=== PATIENT | female | born 1950 | race Caucasian/White ===

== ENCOUNTER 2021-03-22 17:13 | Emergency (ER) | payer OTHER ==
[~2021-03-22] VITALS: Ht 152.4 cm; Wt 72.6 kg
[2021-03-22] MEDS ORDERED: SODIUM CHLORIDE 0.9% 500 ML IV ONE (17:45)
[2021-03-22 18:10] LABS: Basophils # (auto) 0 10 ^3/uL (0-0.2); Basophils % (auto) 0.5 % (0.0-2.0); Eosinophils # (auto) 0.1 10 ^3/uL (0-0.8); Eosinophils % (auto) 2.2 % (0.0-7.0); Hemoglobin 14.2 g/dL (12.2-16.2); Lymphocytes # (auto) 1.2 10 ^3/uL (0.4-5.4); Lymphocytes % (auto) 28.1 % (10.0-50.0); Mean Corpuscular Hemoglobin 32.5 pg (28.0-32.0); Mean Corpuscular Hgb Conc. 35.4 g/dL (32.0-36.0); Mean Corpuscular Volume 91.8 fL (80.0-100.0); Monocytes # (auto) 0.3 10 ^3/uL (0-1.3); Neutrophils # (auto) 2.8 10 ^3/uL (1.6-8.6); Neutrophils % (auto) 62.2 % (37.0-80.0); Nucleated Red Blood Cells % 0.1 %; Platelet Count (auto) 173 10^3/uL (140-450); Red Blood Cells 4.36 10^6/uL (4.0-5.20); Red Cell Distribution Width 12.5 % (11.8-14.3); White Blood Cell 4.4 10^3/uL (4.4-10.8)
[2021-03-22 18:14] LABS: Urine Bacteria MANY /hpf (None Seen); Urine Blood 1+ /uL (Negative); Urine Mucus FEW (None Seen); Urine WBC 1163 /hpf (0 - 5); Urine WBC Clumps PRESENT /hpf (None Seen)
[2021-03-22 18:18] LABS: Albumin 3.9 g/dL (3.4-5.0); Calcium 8.5 mg/dL (8.5-10.1)
[2021-03-22 18:21] LABS: BUN/Creatinine Ratio 28.2
[2021-03-22 18:24] LABS: Bilirubin, Total 0.4 mg/dL (0.2-1.0)
[2021-03-22] MEDS ORDERED: POTASSIUM CHL 20MEQ/100ML 100 ML IV ONE (18:30)
[2021-03-22] MEDS ORDERED: cefTRIAXone 1GM/50ML D5W 50 ML IV ONE (18:30)
[2021-03-22 22:41] VITALS: BP 161/70
== END 2021-03-22 23:13 | disposition hospice, inpatient (51) ==
LOC: ER 17:13
DX: E11.65 Type 2 diabetes mellitus with hyperglycemia (principal); N39.0 Urinary tract infection, site not specified; I10 Essential (primary) hypertension; E78.5 Hyperlipidemia, unspecified
CPT/HCPCS: 36415; 71045; 80053; 81001; 82962; 85025; 96361; 96365; 99284; J0696; J3480; J7030